=== PATIENT | male | born 1950 | race Caucasian/White ===

== ENCOUNTER 2017-02-14 09:03 | Day surgery (SDC) | payer OTHER ==
[~2017-02-14] VITALS: Ht 188 cm; Wt 87.1 kg
[~2017-02-14 09:03] MED LIST: ASPIRIN EC325 M2 PO; CINNAMON PLUS1 EACH PO; CLA 1,000 MG1000 MG PO; CYMBALTA20 MG PO; CYMBALTA60 MG PO; DHEA25 MG PO; DHEA50 M1 PO; FLECAINIDE ACE100 MG PO; IBUPROFEN IB200 MG PO; IBUPROFEN800 MG PO; L-LYSINE1000 M1 PO; LETHICIN PO; LIPITOR40 MG PO; LOPRESSOR25 MG PO; MAGNESIUM500 MG PO; METOPROLOL TART50 MG PO; MOBIC7.5 MG PO; MULTIVITAMIN1 EAC2 PO; OMEPRAZOLE40 M1 PO; PROSTATE HEALT1 EAC1 PO; VITAMIN C1000 MG PO; [UNRECOGNIZED DRUG - OTHER]
== END 2017-02-14 11:03 | disposition home or self-care (01) ==
LOC: PAIN 09:03 → SDC 11:15
DX: M51.16 Intervertebral disc disorders with radiculopathy, lumbar region (principal); M48.06 Spinal stenosis, lumbar region; M96.1 Postlaminectomy syndrome, not elsewhere classified; G47.33 Obstructive sleep apnea (adult) (pediatric); I48.0 Paroxysmal atrial fibrillation; Z79.82 Long term (current) use of aspirin; Z79.899 Other long term (current) drug therapy
CPT/HCPCS: J1100; J2250; J3010

== ENCOUNTER 2017-03-16 08:46 | Day surgery (SDC) | payer OTHER ==
[~2017-03-16] VITALS: Ht 188 cm; Wt 86.2 kg
== END 2017-03-16 10:10 | disposition home or self-care (01) ==
LOC: PAIN 08:46 → SDC 09:15 → PAIN 09:15
PROC: 3E0R33Z Introduction of Anti-inflammatory into Spinal Canal, Percutaneous Approach (ICD-10-PCS; principal; 2017-03-16)
DX: M47.26 Other spondylosis with radiculopathy, lumbar region (principal); M51.16 Intervertebral disc disorders with radiculopathy, lumbar region; M41.9 Scoliosis, unspecified; K21.9 Gastro-esophageal reflux disease without esophagitis; E78.5 Hyperlipidemia, unspecified; G47.33 Obstructive sleep apnea (adult) (pediatric); I48.0 Paroxysmal atrial fibrillation; Z79.82 Long term (current) use of aspirin
CPT/HCPCS: J1100; J2250; J3010

== ENCOUNTER 2017-04-24 13:26 | Day surgery (SDC) | payer OTHER ==
[~2017-04-24] VITALS: Ht 188 cm; Wt 86.2 kg
== END 2017-04-24 15:22 | disposition home or self-care (01) ==
LOC: PAIN 13:26 → SDC 14:00 → PAIN 14:00
DX: M47.26 Other spondylosis with radiculopathy, lumbar region (principal); M48.06 Spinal stenosis, lumbar region; M96.1 Postlaminectomy syndrome, not elsewhere classified; M79.1 Myalgia; M17.11 Unilateral primary osteoarthritis, right knee; I48.0 Paroxysmal atrial fibrillation; Z79.82 Long term (current) use of aspirin; Z88.5 Allergy status to narcotic agent; Z88.8 Allergy status to other drugs, medicaments and biological substances
CPT/HCPCS: J1030; J2250; J3010; S0020

== ENCOUNTER 2017-05-01 09:30 | Day surgery (SDC) | payer OTHER ==
[~2017-05-01] VITALS: Ht 188 cm; Wt 86.2 kg
== END 2017-05-01 11:05 | disposition home or self-care (01) ==
LOC: PAIN 09:30 → SDC 10:00 → PAIN 11:05
DX: M47.26 Other spondylosis with radiculopathy, lumbar region (principal); M96.1 Postlaminectomy syndrome, not elsewhere classified; M41.9 Scoliosis, unspecified; M48.06 Spinal stenosis, lumbar region; F41.9 Anxiety disorder, unspecified; I48.0 Paroxysmal atrial fibrillation; K21.9 Gastro-esophageal reflux disease without esophagitis; G47.33 Obstructive sleep apnea (adult) (pediatric); E78.5 Hyperlipidemia, unspecified; Z79.82 Long term (current) use of aspirin; Z88.8 Allergy status to other drugs, medicaments and biological substances
CPT/HCPCS: J1030; J2250; J3010; S0020

== ENCOUNTER → 2017-06-07 | Outpatient (CLI) | payer OTHER | END | disposition home or self-care (01) | LOC: CDC 09:34 | DX: Z01.810 Encounter for preprocedural cardiovascular examination (principal); M25.561 Pain in right knee; M17.11 Unilateral primary osteoarthritis, right knee; R00.1 Bradycardia, unspecified; I44.0 Atrioventricular block, first degree | CPT/HCPCS: 93000 ==

== ENCOUNTER 2017-07-20 12:03 | Day surgery (SDC) | payer OTHER ==
[~2017-07-20] VITALS: Ht 188 cm; Wt 86.2 kg
[~2017-07-20 12:03] MED LIST changes: -ASPIRIN EC325 M2 PO; +ECOTRIN325 MG PO; +LIPITOR10 MG PO; -LIPITOR40 MG PO
== END 2017-07-20 13:55 | disposition home or self-care (01) ==
LOC: PAIN 12:03 → SDC 12:30 → PAIN 13:55
DX: M47.26 Other spondylosis with radiculopathy, lumbar region (principal); M51.16 Intervertebral disc disorders with radiculopathy, lumbar region; M48.061 Spinal stenosis, lumbar region without neurogenic claudication; M96.1 Postlaminectomy syndrome, not elsewhere classified; I48.0 Paroxysmal atrial fibrillation; E78.5 Hyperlipidemia, unspecified; K21.9 Gastro-esophageal reflux disease without esophagitis; M41.9 Scoliosis, unspecified; I44.0 Atrioventricular block, first degree; G47.33 Obstructive sleep apnea (adult) (pediatric); Z79.82 Long term (current) use of aspirin
CPT/HCPCS: J1030; J1885; J2250; J3010; S0020

== ENCOUNTER 2017-07-27 10:18 | Day surgery (SDC) | payer OTHER ==
[~2017-07-27] VITALS: Ht 188 cm; Wt 86.2 kg
== END 2017-07-27 12:00 | disposition home or self-care (01) ==
LOC: PAIN 10:18 → SDC 12:30
DX: M47.26 Other spondylosis with radiculopathy, lumbar region (principal); M54.5 Low back pain; G89.29 Other chronic pain; M51.16 Intervertebral disc disorders with radiculopathy, lumbar region; M48.061 Spinal stenosis, lumbar region without neurogenic claudication; M96.1 Postlaminectomy syndrome, not elsewhere classified; M41.9 Scoliosis, unspecified; E78.5 Hyperlipidemia, unspecified; M79.1 Myalgia; I48.0 Paroxysmal atrial fibrillation; K21.9 Gastro-esophageal reflux disease without esophagitis; Z79.82 Long term (current) use of aspirin
CPT/HCPCS: J1030; J2250; J3010; S0020

== ENCOUNTER 2018-03-07 08:57 | Day surgery (SDC) | payer OTHER ==
[2018-03-07 09:37] LABS: HEMATOCRIT 41.2 % (38.0-50.0); HEMOGLOBIN 14.8 G/DL (12.5-16.6); MCH 31.9 PG (29.0-34.0); MCHC 35.9 G/DL (30.0-36.0); MCV 88.8 FL (86-99); PLATELET COUNT 220 K/uL (156-360); RBC DIS.WIDTH-CV 12.5 % (11.8-14.6); RBC DIS.WIDTH-SD 40.8 % (39-53); RED BLOOD COUNT 4.64 M/uL (4.00-5.50); WHITE BLOOD COUNT 6.8 K/uL (4.1-10.2)
[2018-03-07 09:55] LABS: CHLORIDE 108 MEQ/L (99-109); CREATININE 0.9 MG/DL (0.6-1.3); GFR ESTIMATE (CALCULATED) > 59 mL/min/ (58.99-99999); GLUCOSE 99 mg/dL (70-99); POTASSIUM 4.3 MEQ/L (3.7-5.4); SODIUM 140 MEQ/L (136-147); UREA NITROGEN (BUN) 14 mg/dL (9-23)
== END 2018-03-07 16:05 | disposition home or self-care (01) ==
LOC: CATH 08:57
PROVIDERS: Internal Medicine Cardiovascular Disease
DX: R06.00 Dyspnea, unspecified (principal); I48.0 Paroxysmal atrial fibrillation; R94.31 Abnormal electrocardiogram [ECG] [EKG]; E78.5 Hyperlipidemia, unspecified; R53.82 Chronic fatigue, unspecified; Z79.82 Long term (current) use of aspirin
CPT/HCPCS: 80048; 85027; 93005; C1760; C1769; C1887; C1894; J1644; J2250; J3010; J7040

== ENCOUNTER 2018-04-19 07:43 | Day surgery (SDC) | payer OTHER ==
[~2018-04-19] VITALS: Ht 188 cm; Wt 86.2 kg
== END 2018-04-19 10:00 | disposition home or self-care (01) ==
LOC: PAIN 07:43 → SDC 08:15 → PAIN 10:00
DX: M47.816 Spondylosis without myelopathy or radiculopathy, lumbar region (principal); M51.16 Intervertebral disc disorders with radiculopathy, lumbar region; M48.061 Spinal stenosis, lumbar region without neurogenic claudication; M96.1 Postlaminectomy syndrome, not elsewhere classified; I48.0 Paroxysmal atrial fibrillation; K21.9 Gastro-esophageal reflux disease without esophagitis; E78.5 Hyperlipidemia, unspecified; M79.1 Myalgia; G47.33 Obstructive sleep apnea (adult) (pediatric); M17.11 Unilateral primary osteoarthritis, right knee; Z79.82 Long term (current) use of aspirin; Z88.5 Allergy status to narcotic agent; Z88.8 Allergy status to other drugs, medicaments and biological substances
CPT/HCPCS: J1030; J2250; J3010; S0020

== ENCOUNTER 2018-04-26 07:05 | Day surgery (SDC) | payer OTHER ==
[~2018-04-26] VITALS: Ht 188 cm; Wt 86.2 kg
== END 2018-04-26 09:30 | disposition home or self-care (01) ==
LOC: PAIN 07:05 → SDC 08:00 → PAIN 08:00
PROC: 3E0T3TZ Introduction of Destructive Agent into Peripheral Nerves and Plexi, Percutaneous Approach (ICD-10-PCS; principal; 2018-04-26)
PROC: BR161ZZ Fluoroscopy of Lumbar Facet Joint(s) using Low Osmolar Contrast (ICD-10-PCS; principal; 2018-04-26)
DX: M47.816 Spondylosis without myelopathy or radiculopathy, lumbar region (principal); M51.16 Intervertebral disc disorders with radiculopathy, lumbar region; M48.061 Spinal stenosis, lumbar region without neurogenic claudication; M96.1 Postlaminectomy syndrome, not elsewhere classified; M79.1 Myalgia; K21.9 Gastro-esophageal reflux disease without esophagitis; G47.33 Obstructive sleep apnea (adult) (pediatric); I48.0 Paroxysmal atrial fibrillation; E78.5 Hyperlipidemia, unspecified; Z79.82 Long term (current) use of aspirin; Z88.5 Allergy status to narcotic agent; Z88.8 Allergy status to other drugs, medicaments and biological substances
CPT/HCPCS: J1030; J2250; J3010; S0020